=== PATIENT | male | born 1955 | race Caucasian/White ===

== ENCOUNTER → 2016-04-10 | Outpatient (CLI) | payer MEDICARE ==
[~2016-04-10] MED LIST: AMLO5TAB PO; ASPIRIN 81MG TA81 MG PO; ATENOLOL50 M1 PO; ATENOLOL50 MG PO; ATORVASTATIN CA80 MG PO; AUGMENTIN 875 M1 TAB PO; BENZONATATE100 MG PO; BRILINTA90 M1 PO; CHEWABLE ASPIRI81 MG PO; CIPRO 500MG TA500 MG PO; CLOPIDOGREL75 M2 PO; CRESTOR40 MG PO; EC NAPROSYN500 MG PO; FUROSEMIDE 20MG20 MG PO; GABAPENTIN300 M1 PO; LISINOPRIL 10MG10 MG PO; LISINOPRIL 20MG20 MG PO; LISINOPRIL20 MG PO; LORTAB 5/500 501 TAB PO; LOSARTAN POTASS50 MG PO; MEDROL 4MG. DOSE4 MG PO; NAPROSYN 500MG500 MG PO; NITROGLYCERIN0.4 MG SL; PAXIL20 MG PO; PLAVIX75 MG PO; PRAVACHOL 40MG40 MG PO; RANEXA500 M1 PO; ROBAXIN-750750 MG PO; TYLENOL WITH CO1 TA1 PO; VICODIN 5/500 T1 TAB PO; VOLTAREN75 MG PO; [UNRECOGNIZED DRUG - REMARK] PO
--- NOTE | 2016-04-10 09:24 | RADIOLOGY REPORT PS360 ---
CHEST(2 VIEWS-NOT PORTABLE) HISTORY: COUGH SYNCOPE SYNDROME ORDERING PHYSICIAN: IVON Dasilva PATIENT AGE: 60 years COMPARISON: 08/27/2015 FINDINGS: The cardiomediastinal silhouette and pulmonary vascularity are within normal limits. Coronary artery stent is present The lungs are clear without infiltrates, suspicious nodules, or pleural effusions. No acute bony abnormalities. There is mild wedging anteriorly involving the lower thoracic vertebral bodies unchanged likely developmental IMPRESSION: No change with no acute finding
== END ==
LOC: RAD 08:34
DX: R05 Cough (principal)